=== PATIENT | female | born 1975 | race Caucasian/White ===

== ENCOUNTER 2019-05-15 11:25 | Emergency (ER) | payer OTHER ==
[~2019-05-15] VITALS: Ht 154.9 cm; Wt 83.9 kg
[2019-05-15] MEDS ORDERED: SODIUM CHLORIDE 0.9% 1000ML 1,000 ML IV SCH (11:45)
[2019-05-15] MEDS ORDERED: MORPHINE SULFATE INJ 4 MG/ML INJ 1ML IV ONE (12:00)
[2019-05-15] MEDS ORDERED: ONDANSETRON HCL INJ 2MG/ML 2ML 2 MG/ML VIAL IV ONE (12:00)
[2019-05-15 12:07] LABS: BASOPHILS % 0.3 % (0.0-1.0); EOSINOPHILS # (AUTO) 0.1 (0.0-0.4); EOSINOPHILS % 0.6 % (0.0-6.0); HEMATOCRIT 39.8 % (34.2-44.1); HEMOGLOBIN 13.3 g/dL (12.0-16.0); LYMPHOCYTES # (AUTO) 1.9 (1.0-3.2); LYMPHOCYTES % 17.8 % (18.0-39.1); MEAN CORPUSCULAR HEMOGLOBIN 30.2 pg (28-32); MEAN CORPUSCULAR HGB CONC 33.4 g/dL (31-35); MEAN CORPUSCULAR VOLUME 90.5 fL (81-99); MONOCYTES # (AUTO) 0.6 (0.2-0.8); MONOCYTES % 5.8 % (4.4-11.3); NEUTROPHILS # (AUTO) 8.1 (2.1-6.9); NEUTROPHILS % 74.9 % (38.7-80.0); PLATELET COUNT 278 x10e3/uL (140-360); RED CELL DISTRIBUTION WIDTH 12.7 % (11.7-14.4)
[2019-05-15 13:06] LABS: ALANINE AMINOTRANSFERASE 25 IU/L (0-55); ALBUMIN 4.3 g/dL (3.5-5.0); ALBUMIN/GLOBULIN RATIO 1.4 (0.8-2.0); ALKALINE PHOSPHATASE 65 IU/L (40-150); ANION GAP 10.6 mmol/L (8-16); BLOOD UREA NITROGEN 12 mg/dL (7-26); BUN/CREATININE RATIO 13 (6-25); CALCIUM 9.5 mg/dL (8.4-10.2); CARBON DIOXIDE 27 mmol/L (22-29); CHLORIDE 105 mmol/L (98-107); CREATININE, SERUM 0.89 mg/dL (0.57-1.11); EST GLOMERULAR FILTRATION RATE > 60 ML/MIN (60-); GLUCOSE 115 mg/dL (74-118); POTASSIUM 4.6 mmol/L (3.5-5.1); SODIUM 138 mmol/L (136-145)
[2019-05-15 13:51] LABS: COLOR,URINE YELLOW (YELLOW)
[2019-05-15 13:52] LABS: BILIRUBIN,URINE NEGATIVE (NEGATIVE); CLARITY,URINE SL CLOUDY (CLEAR); KETONES,URINE NEGATIVE (NEGATIVE); LEUKOCYTE ESTERASE ,URINE TRACE (NEGATIVE); NITRITE,URINE NEGATIVE (NEGATIVE); PROTEIN,URINE DIPSTICK TRACE (NEGATIVE); URINE UROBILINOGEN 0.2 mg/dL (0.2 - 1)
[2019-05-15 14:06] LABS: BACTERIA,URINE MODERATE /HPF
[2019-05-15 14:07] LABS: AMORPHOUS SEDIMENT,URINE MODERATE (FEW); EPITHELIAL CELLS,URINE MODERATE /LPF; MUCUS,URINE FEW (RARE)
--- NOTE | 2019-05-15 14:09 | Diagnostic Imaging Report ---
CT of the abdomen and pelvis, with contrast, 05/15/2019. History: Severe right lower abdominal pain. Comparison: None available. Technique: Multidetector CT scanning of the abdomen and pelvis was performed from the level of the lung bases to the inferior pubic rami after intravenous administration of contrast. Coronal and sagittal multiplanar reformations were obtained. RADIATION DOSE: Total DLP: 594 mGy*cm Dose modulation, iterative reconstruction, and/or weight based adjustment of the mA/kV was utilized to reduce the radiation dose to as low as reasonably achievable. Discussion: LUNG BASES: No visualized abnormalities. ABDOMEN: There is mild right hydronephrosis and dilatation of the right ureter down to the UV junction where a 3 mm stone is identified. Slightly decreased enhancement of the right renal parenchyma is noted compared to the left. There is no evidence of nephrolithiasis or hydronephrosis on the left. Multiple stones are present within the gallbladder. Calcified granulomata are present throughout the spleen. The liver, biliary tree, pancreas, and adrenal glands are normal. The hepatic vein, portal vein, and splenic vein are patent. The abdominal aorta is within normal limits for size. There is no bowel dilatation. There is no evidence of adenopathy or free fluid. PELVIS: The bladder is normal in appearance. The uterus is absent. A right ovarian follicle is present. Left adnexa is unremarkable. There is no evidence of free fluid or adenopathy. BONES AND SOFT TISSUES: No acute abnormality. IMPRESSION: 1. 3 mm stone at the right ureterovesicular junction causing mild right hydronephrosis. 2. Cholelithiasis. 3. Status post hysterectomy. Signed by: Colt Reyes on 05/15/2019 2:06 PM
[2019-05-15] MEDS ORDERED: KETOROLAC TROMETHAMINE 30 MG/ML VIAL IV STA (14:18)
[2019-05-15] MEDS ORDERED: ZOFRAN4 MG SL (15:07)
[2019-05-15] MEDS ORDERED: LEVAQUIN500 MG PO (15:07)
[2019-05-15] MEDS ORDERED: ULTRAM50 MG PO (15:07)
[2019-05-15 15:47] VITALS: BP 133/80
[2019-05-15] MEDS ORDERED: SODIUM CHLORIDE 0.9% 50ML 50 ML ONE (18:22)
[2019-05-15] MEDS ORDERED: IOPAMIDOL 370 MG/ML 200 ML INFUS..BTL INJ ONE (18:22)
== END 2019-05-15 15:56 | disposition home or self-care (01) ==
LOC: ER 11:25
DX: R10.31 Right lower quadrant pain (principal); R11.0 Nausea; N20.2 Calculus of kidney with calculus of ureter
CPT/HCPCS: 36415; 74177; 80053; 81001; 85025; 99284; J1885; J2270; J2405; J7030; Q9967